=== PATIENT | male | born 1950 | race Caucasian/White ===

== ENCOUNTER → 2016-12-20 | Outpatient (CLI) | payer BC ==
[~2016-12-20] MED LIST: AMLODIPINE BESYL5 MG PO; ASPIRIN81 M2 PO; ATORVASTATIN CA10 MG PO; EYE VITAMIN-MI1 EACH; FLONASE ALLERG9.9 ML; LIPITOR20 MG PO; LISINOPRIL5 MG PO; LORTAB 101 TAB 10/5 PO; NO MEDICATIONS; OCUVITE EYE +1 EACH; PERCOCET PO; PERCOCET5/325 PO; TYLOX1 CAP 5/50 PO; ZYVOX PO
--- NOTE | ~2016-12-20 | CT57 ---
[facility] A Service of [facility] & [facility] RADIOLOGY TEXT RESULTS PATIENT: TSERING SABILLON LOCATION: [facility] : 54 UNIT #: [id number] AGE: [address]: Rojelio Eldridge MD SEX: M ORDER DR: [id number] [address] [address] [id number] O MR#: [id number] Acc #: [id number] NAME: TSERING SABILLON : 1950 SEX: M STUDY DATE/TIME: 12/20/2016 08:52 UNIT: [facility] ROOM: STUDY DESCRIPTION: CT Chest Wo Cont Attending Physician: Rojelio Eldridge M.D. Referring Physician: Rojelio Eldridge M.D. Ordering Physician: Rojelio Eldridge M.D. Primary Care Physician: Rojelio Eldridge M.D. MEDICAL IMAGING REPORT This report is preliminary unless electronic signature is present. EXAM CT chest without contrast, 12/20/2016 0852 hours HISTORY 66-year-old man with no current chest complaints. Follow up right lung nodule seen on outside CT from [facility] dated 09/19/2016. COMPARISON CT abdomen 05/25/2010 and report of outside CT from [facility]. TECHNIQUE Helical noncontrasted images were obtained from the thoracic inlet through the adrenal glands. Sagittal and coronal reconstructions were performed. Total exam DLP 727 mGy-cm. This CT exam was performed with one or more of the following radiation dose reduction techniques: Automatic exposure control, adjustment of mA and/or kV according to patient size, and iterative reconstruction. FINDINGS There is mild thyromegaly and heterogeneity suggesting a goiter. No discrete suspicious nodule is seen. Images through the chest demonstrate benign calcified granulomatous changes. There is no pathologic adenopathy. There are coarse calcifications at the aortic valve and aortic leaflets, which can be associated with aortic stenosis. The ascending aorta however, is normal in caliber. Cardiac chambers, pericardium and esophagus are normal. The lungs demonstrate mild to moderate underlying centrilobular and paraseptal emphysema. There is a small area of peripheral tree-in-bud density laterally in the right upper lobe on image 31. There are [address] [facility] A Service of [facility] & [facility] RADIOLOGY TEXT RESULTS PATIENT: TSERING SABILLON LOCATION: [facility] : 54 UNIT #: [id number] AGE: [address]: Rojelio Eldridge MD SEX: M ORDER DR: of tree-in-bud density in the right lower lobe, one best seen on image 40 and the other more inferiorly and medially at the extreme lung base on image 55. The tree-in-bud pattern suggests infectious/inflammatory change. Previous report of CT described a cluster of small nodules in the right middle lobe, which I do not clearly see. The described 4-mm nodule in the right upper lobe is also not discretely seen. Those findings may have resolved. The tree-in-bud nodularity seen in the lower lobe right lung are not described on the prior outside report. I do not have the actual images for direct comparison. No effusions are seen. Limited views through the upper abdomen demonstrate a normal noncontrasted appearance to the liver, spleen and pancreas. The gallbladder is normal. There is no bile duct dilatation. The adrenal glands are normal. There is a 2-mm nonobstructing stone in the posterior mid-left kidney. There is a ventral wall hernia on the last images of this exam containing a knuckle of transverse colon, which is nonobstructed. The transverse defect measures up to 4.6 cm. This is not present on the prior CT 05/25/2010. IMPRESSION 1. There is underlying mild centrilobular and paraseptal emphysema. 2. There is mild tree-in-bud density in the lateral aspect of the right middle lobe and 2 areas of the right lower lobe not described on the prior CT report. Previous described 4 mm right upper lobe nodule on outside report is not detected. The current findings suggest the presence of infection or inflammation. 3. There is no pathologic adenopathy. 4. Very coarse calcifications at the aortic valve plane could indicate underlying aortic stenosis. The ascending aorta and cardiac chambers are normal. 5. There is a midline ventral hernia measuring up to 4.6 cm transverse which contains a knuckle of the transverse colon, which appears nonobstructed. This is new compared to the CT abdomen of 05/25/2010. Dictated by... Yanet George M.D. THIS IS AN ELECTRONICALLY VERIFIED REPORT Yanet George M.D. at 12/22/2016 9:38 AM NIDHI/mamadou TD: 12/21/2016 16:42 JOB #: [id number] MEDICAL IMAGING REPORT Page 1 of 1
== END | disposition home or self-care (01) ==
LOC: SCT 08:39
DX: R91.1 Solitary pulmonary nodule (principal); J43.2 Centrilobular emphysema; J98.4 Other disorders of lung; K43.9 Ventral hernia without obstruction or gangrene
CPT/HCPCS: 71250

== ENCOUNTER → 2017-06-15 | Day surgery (SDC) | payer MEDICARE, BC ==
--- NOTE | ~2017-06-15 | OR ---
Unit #: [id number] #: [id number] Patient: TSERING SABILLON [id number] [address] [place], [place] [address] [id number] O MR#: [id number] NAME: TSERING SABILLON ROOM: Date of Procedure: 06/15/2017 Admission Date: 06/15/2017 Surgeon: Regan Yoo M.D. : 1950 Attending Physician: Regan Yoo M.D. Primary Care Physician: Rojelio Eldridge M.D. OPERATIVE REPORT PRIMARY CARE PHYSICIAN Rojelio Eldridge M.D. PREOPERATIVE DIAGNOSES The patient has come for surveillance colonoscopy. He has personal history of colon polyps. He also has occasional hematochezia and has had previous history of partial right hemicolectomy. PROCEDURES PERFORMED 1. Colonoscopy and polypectomy. 2. Colonoscopy and submucosal injection. POSTOPERATIVE DIAGNOSES 1. The patient had a large 1.5 to 2 cm sessile polyp in the proximal ascending colon. This was a true sessile adenoma just above the ileocecal valve. It was removed using submucosal injection of methylcellulose polyp, bed elevation followed by snare cautery polypectomy. The gap left by the polypectomy site was closed by a single application of hemoclip. 2. A second sessile diminutive polyp and the smaller polyp in the sigmoid colon about 5 mm in size. 3. Small internal hemorrhoids. These were felt to be too small to require hemorrhoidal band ligation. 4. Rest of the examination up to cecum was normal. The quality of prep was excellent. SEDATION USED MAC. DESCRIPTION OF PROCEDURE Following detailed explanation of the potential risks and complications of a colonoscopy, namely perforation, bleeding, and complications related to sedation, the patient was brought to GI lab and laid in the left lateral decubitus position. A digital rectal examination was performed, which was normal. Lubricated tip of the Olympus video colonoscope was inserted through the anus and advanced under direct vision. The scope was advanced and passed up to sigmoid into descending colon. No diverticula were seen in this area. The scope tip was then navigated all the way up to cecum with visualization of ileocecal valve and cecal strap. Preparation was excellent with good visualization and photodocumentation was obtained. Successive segments of the colonic mucosa were examined upon withdrawal. A large 2 cm sessile polyp was noted in the proximal ascending colon. This was a true flat adenoma. It was removed after injection of Unit #: [id number] #: [id number] Patient: TSERING SABILLON methylcellulose in the polyp base, elevation of the polyp bed, and complete removal of the polyp using snare cautery polypectomy. The gap left by polypectomy was then closed using a single application hemoclip. A second smaller polyp was seen in the mid sigmoid colon was also removed using snare polypectomy. It was about 5 mm in size. No additional polyps noted. The patient did not have any diverticula, but did have small internal hemorrhoids at anal verge. The scope was then withdrawn. The patient returned to recovery area. He tolerated the procedure without any postprocedure complications. Dictated by... Akhil Brizuela/marko TD: 06/15/2017 13:28 JOB #: [id number] CC: Rojelio Eldridge M.D. OPERATIVE REPORT Page 1 of 1 X Regan Yoo MD PROCEDURE OPERATIVE NOTE
== END | disposition home or self-care (01) ==
LOC: COPS 09:01
DX: D12.2 Benign neoplasm of ascending colon (principal); K63.5 Polyp of colon; K64.8 Other hemorrhoids; I10 Essential (primary) hypertension; F17.210 Nicotine dependence, cigarettes, uncomplicated; Z86.010 Personal history of colon polyps; Z79.82 Long term (current) use of aspirin; Z79.899 Other long term (current) drug therapy; Z90.49 Acquired absence of other specified parts of digestive tract; Z98.890 Other specified postprocedural states
CPT/HCPCS: 88305